=== PATIENT | male | born 1965 | race Caucasian/White ===

== ENCOUNTER 2020-11-03 20:19 | Emergency (ER) | payer MEDICARE ==
[2020-11-03 21:32] LABS: HEMOGLOBIN 14.1 gm/dl (14.0-17.5); RED BLOOD COUNT 4.43 M/UL (4.20-5.50); WHITE BLOOD COUNT 7.9 K/UL (4.5-11.0)
[2020-11-03 21:53] LABS: BUN/CREATININE RATIO 27 (0-10)
== END 2020-11-03 23:55 | disposition short-term general hospital (02) ==
LOC: ER1 20:19
PROVIDERS: Family Medicine
DX: N36.8 Other specified disorders of urethra (principal)
CPT/HCPCS: 80053; 85025; 99284; Q9967

== ENCOUNTER → 2021-06-15 | Outpatient (CLI) | payer MEDICARE | LOC: EMI 14:24 | DX: M50.222 Other cervical disc displacement at C5-C6 level (principal); M48.02 Spinal stenosis, cervical region; M25.78 Osteophyte, vertebrae | CPT/HCPCS: 72141 ==

== ENCOUNTER → 2021-06-23 | Outpatient (CLI) | payer MEDICARE | LOC: RT 11:24 | DX: Z79.891 Long term (current) use of opiate analgesic (principal) | CPT/HCPCS: 93005 ==